=== PATIENT | female | born 1965 | race American Indian/Alaskan Native ===

== ENCOUNTER 2020-06-22 10:18 | Outpatient (CLI) | payer OTHER ==
--- NOTE | 2020-06-22 12:05 | XRay Report ---
LEFT KNEE 3 VIEWS 1117 INDICATION: PAIN IN LEFT KNEE COMPARISON: None available. FINDINGS: Small joint effusion is seen. Mild changes are noted most affecting the patellofemoral spac e and minimally in the medial joint. No fractures or dislocations are seen. A small rectangular forei gn body is noted in the soft tissues immediately anterior to the proximal tibia which may be surgical in nature. Signer Name: Lewis Kwon MD Signed: 06/22/2020 12:00 PM Workstation Name: [id number]
== END 2020-06-22 10:19 | disposition home or self-care (01) ==
LOC: XRAY 10:18
PROVIDERS: ATTEND Orthopaedic Surgery
DX: M25.462 Effusion, left knee (principal); M17.12 Unilateral primary osteoarthritis, left knee